=== PATIENT | female | born 1975 | race Caucasian/White ===

== ENCOUNTER → 2016-09-27 16:27 | Outpatient (CLI) | payer MEDICAID | END | disposition home or self-care (01) | LOC: D.MAMMO 13:00 | DX: R92.2 Inconclusive mammogram (principal) ==

== ENCOUNTER → 2017-03-20 08:43 | Outpatient (CLI) | payer BC | LOC: D.MAMMO 08:43 → D.US 11:00 → D.MAMMO 15:00 | DX: R92.2 Inconclusive mammogram (principal) ==

== ENCOUNTER 2017-11-29 05:00 | Day surgery (SDC) | payer MEDICAID ==
[2017-11-28 10:13] LABS: BASOPHILS 0.3 % (0-2); EOSINOPHILS 1.1 % (0-7); HEMATOCRIT 39.2 % (36.0-48.0); HEMOGLOBIN 12.8 g/dL (12-16); IMMATURE GRANULOCYTES 0.1 % (0-5); LYMPHOCYTES 37.5 % (15-50); MCH 27.8 pg (26.0-34.0); MCHC 32.7 g/dL (31.0-37.0); MEAN PLATELET VOLUME 10.9 fL (7.4-10.4); MONOCYTES 7.5 % (2-11); NEUTROPHILS 53.5 % (40-80); PLATELET COUNT 205 10x3/uL (130-400); RBC 4.61 10x6/uL (4.00-5.40); RDW 12.7 % (11.5-14.5); WBC 7.4 10x3/uL (4.8-10.8)
[2017-11-29] VITALS (8 sets, daily range): BP systolic 100–126; BP diastolic 52–66; Ht 162.6 cm; Wt 71.7 kg
[~2017-11-29] VITALS: Ht 162.6 cm; Wt 71.7 kg
--- NOTE | ~2017-11-29 | OP ---
PATIENT NAME: KIRSTY TEMPLE MEDICAL RECORD: [id number] :71 LOCATION:[facility] .1276 ADMISSION DATE: SURGEON: DEAN MCLAUGHLIN MD DATE OF OPERATION: 11/29/2017 PREOPERATIVE DIAGNOSES: 1. Dysfunctional uterine bleeding. 2. Pelvic pain. POSTOPERATIVE DIAGNOSES: 1. Dysfunctional uterine bleeding. 2. Pelvic pain. 3. Suspect adenomyosis. 4. Left pelvic adhesive disease. PROCEDURES PERFORMED: 1. Diagnostic laparoscopy. 2. Total laparoscopic hysterectomy with left salpingo-oophorectomy and right salpingectomy. SURGEON: Dean Mclaughlin MD AUDIT LEAD: Billy Elise. ANESTHESIOLOGIST: Dayday Collazo MD ANESTHESIA: General. FINDINGS: Uterus is slightly enlarged and boggy with pelvic congestion bilaterally. The left ovary is unremarkable, well with the exceptions of some adhesions to the left pelvic sidewall and bowel. Right tube and ovaries unremarkable. What was visualized at the abdominal anatomy was unremarkable. SPECIMENS REMOVED: Uterus with cervix, bilateral tubes, and left ovary. SPECIMEN DISPOSITION: Pathology. ESTIMATED BLOOD LOSS: Less than or equal to 150 cc. URINE OUTPUT: 125 cc clear of urine. FLUIDS: 1300 cc of lactated Ringer's. COMPLICATIONS: None. DRAIN: Rosado to gravity. INDICATIONS: The patient is a 42-year-old multiparous female with heavy irregular bleeding. The patient also has chronic left pelvic pain and intense dysmenorrhea. The patient has been offered and has had in the past conservative therapy without resolution of her symptoms. The patient understands risks, benefits, and limitations of planned procedure. DESCRIPTION OF PROCEDURE: After informed consent was assured, the patient was taken to the operating room, anesthetic was obtained. The patient was prepped OPERATIVE REPORT [id number] KIRSTY TEMPLE and draped after being placed in [facility]. A uterine manipulator was placed and then attention was directed to the abdomen. An incision was made at the umbilicus to accommodate a 5-mm trocar, which was inserted without difficulty. The pneumoperitoneum was developed and the patient was placed in Trendelenburg position. Accessory ports were placed in the right and left lower quadrants. Through the right port, an JUMA Harmonic scalpel was inserted. The right tube was elevated and the tissues connecting the right tube to the right adnexa was serially compressed, coagulated, and . The dissection was carried of the uterine ovarian ligament, round ligaments, and the anterior leaf of the broad ligament was opened. The dissection of the bladder flap was continued to the midline. The posterior leaf was opened, the vessels of the right side skeletonized, compressed, coagulated, and then with Gyrus coagulation cutter. Attention was now directed to the left side where the left tube and ovaries elevated. Using the Gyrus, the infundibulopelvic ligaments compressed, coagulated, and . The dissection was now carried behind the ovary across the round ligament and the anterior leaf of the broad ligament was opened. The bladder flap was now fully developed and the posterior leaf of the broad ligament was opened. The vessels on the left side are skeletonized, compressed, coagulated, and . Now using the JUMA Harmonic scalpel, the uterus was removed from its attachment to the vagina by placing the Harmonic scalpel over the manipulator cup. The dissection was from 12 o'clock to 6 o'clock and then from 6 o'clock back to 12 o'clock. Once the uterus is freed, it was pulled into the pelvis. The right tube had been removed incidentally during this procedure and it was removed after removal of the uterus from the vagina. The weighted speculum was introduced in the vagina after positioning the legs and Bach-Nerve Willard retractor was used to displace the vault anteriorly. Now using Vicryl stitch, the cuff was closed in an anterior and posterior fashion. Reestablishment of the pneumoperitoneum revealed some bleeding edges along the cuff. These were controlled with spot coagulation using the Gyrus coagulation device. After this has been performed, the pneumoperitoneum was released. The skin was closed with a subcuticular stitch and Dermabond was applied. Sponge, lap, and needle count was correct times 2 at the close of the procedure. TRANSINT:[id number] Voice Confirmation ID: [id number] DOCUMENT ID: [id number] DEAN MCLAUGHLIN MD at 1251 CC: [id number] DICTATION DATE: 11/29/17922 DISTRICT FIRE CHIEF: 11/29/17 1013 [facility] [address] [place] [address]
[~2017-11-29 05:00] MED LIST: ASPIRIN EC81 M1 PO; HYDROCODONE-APA1 TAB PO; MULTI-DAY VITAM1 TAB PO
[2017-11-29] MEDS ORDERED: MILK OF MAGNESI30 ML (05:34)
[2017-11-29] MEDS ORDERED: DULCOLAX STOOL100 MG PO (05:34)
[2017-11-29] MEDS ORDERED: IBUPROFEN800 MG PO (16:02)
[2017-11-29] MEDS ORDERED: PERCOCET 7.5/321 TAB PO (16:03)
== END 2017-11-29 16:45 | disposition home or self-care (01) ==
LOC: D.OPS 05:00 → D.PAN 07:30 → D.OPS 07:30 → D.LD 10:01 → D.OPS 16:45
PROVIDERS: Obstetrics & Gynecology
DX: N93.8 Other specified abnormal uterine and vaginal bleeding (principal); N94.5 Secondary dysmenorrhea; F17.200 Nicotine dependence, unspecified, uncomplicated; K21.9 Gastro-esophageal reflux disease without esophagitis; Z01.812 Encounter for preprocedural laboratory examination; N73.6 Female pelvic peritoneal adhesions (postinfective)

== ENCOUNTER → 2018-05-15 10:41 | Outpatient (CLI) | payer MEDICAID ==
[2017-11-29 05:36] VITALS: BMI 27.1
[~2018-05-15 10:41] MED LIST changes: +DULCOLAX STOOL100 MG PO; +IBUPROFEN800 MG PO; +MILK OF MAGNESI30 ML; +PERCOCET 7.5/321 TAB PO
== END | disposition home or self-care (01) ==
LOC: D.MRI 10:41
DX: M54.5 Low back pain (principal)